=== PATIENT | male | born 1990 | race Caucasian/White ===

== ENCOUNTER 2022-07-20 20:24 | Emergency (ER) | payer MEDICAID, SELFPAY ==
[2022-07-20 20:28] VITALS: BP 134/80; PULSE 89; RESP 18; TEMP 36.6; O2SAT 99
[2022-07-20] MEDS: LORazepam (*CRX) 0.5 MG TABLET PO (20:59)
--- NOTE | 2022-07-20 21:09 | ED.GENADULT ---
HPI - General Adult General Chief complaint: Psychiatric Symptoms Stated complaint: SI History of Present Illness HPI narrative: This is home was 31-year-old presented to the ED from police custody after being arrested for shoplifting. Patient recently moved to [place] and has had a tumultuous course. He was discharged from a mental health facility and was living in long-term home. He was kicked a long-term home on 07/15 for getting high and marijuana. Since then he has been homeless. He was trying to steal a tent from [employer] and got caught. After the police arrested him he told them that he was thinking of hurting himself and was brought to the hospital. The patient denies suicidal ideation, homicidal ideation auditory or visual hallucinations. He denies use of drugs or alcohol. He does not have access to a firearm. He does have family in the area but they were unwilling to let him live with them. Related Data Allergies Allergy/AdvReac Type Severity Reaction Status Date / Time No Known Allergies Allergy Unverified 07/29/18 06:52 [facility] Past Medical History Medical History ADHD Anxiety Bipolar affect, depressed Exam Narrative: APPEARANCE: No apparent distress. Head: atraumatic. EYES: EOMI, NOSE: Atraumatic NECK: Trachea midline RESPIRATORY: No increased rate of breathing CARDIOVASCULAR: RRR, Clear to auscultation ABDOMINAL: Non-distended MUSCULOSKELETAl: No obvious deformities NEURO: Alert. Moving 4/4 extremities SKIN:: Warm, dry. Normal color PSYCHIATRIC: Normal affect Course Vital Signs Vital signs: Vital Signs Temperature 98 F 07/20/22 20:28 Pulse Rate 89 07/20/22 20:28 Respiratory Rate 18 07/20/22 20:28 Blood Pressure 134/80 07/20/22 20:28 Pulse Oximetry 99 07/20/22 20:28 Oxygen Delivery Room Air 07/20/22 20:28 Temperature 98 F 07/20/22 20:28 Pulse Rate 89 07/20/22 20:28 Respiratory Rate 18 07/20/22 20:28 Blood Pressure 134/80 07/20/22 20:28 Pulse Oximetry 99 07/20/22 20:28 Oxygen Delivery Room Air 07/20/22 20:28 Medical Decision Making MDM Narrative Medical decision making narrative: -Presentation: 31-year-old male presenting to ED after claiming he was suicidal while in police custody. He is now denying suicidal ideation. No complaints @this time. screening psych lab work has been ordered including a lithium level. 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 This can be followed by his primary care physician. Urine drug screen was positive for amphetamines and cannabinoids. Brodnax was subtherapeutic at 0.3. -Dx tests considered but not ordered: -Procedures:None -Interventions: 0.5 Ativan -Shared decision making / Disposition: patient was evaluated by crisis Center and he will be discharged with a safety contract. Patient has burned his bridges with his family and has no where to go. Patient will be given a bus pass and will attempt to reconcile with his folks. -RX Vital Signs Vital Signs: Vital Signs Temperature 98 F 07/20/22 20:28 Pulse Rate 89 07/20/22 20:28 Respiratory Rate 18 07/20/22 20:28 Blood Pressure 134/80 07/20/22 20:28 Pulse Oximetry 99 07/20/22 20:28 Oxygen Delivery Room Air 07/20/22 20:28 Temperature 98 F 07/20/22 20:28 Pulse Rate 89 07/20/22 20:28 Respiratory Rate 18 07/20/22 20:28 Blood Pressure 134/80 07/20/22 20:28 Pulse Oximetry 99 07/20/22 20:28 Oxygen Delivery Room Air 07/20/22 20:28 Lab Data 07/20/22 2
[2022-07-20 21:15] LABS: Appearance Urine Clear (Clear); Bilirubin Urine Negative (Negative); Blood Urine Negative (Negative); Color Urine Yellow (Yellow); Glucose Urine UA Negative (Negative); Ketones Urine Negative (Negative); Leukocyte Esterase Ur Negative LEU/UL (Negative); Nitrate Urine Negative (Negative); Protein Urine Negative (Negative); Specific Grav Ur 1.016 (1.001-1.035); Urobilinogen Urine 0.2 mg/dL (<2.0)
[2022-07-20 21:17] LABS: Ethanol 56 mg/dL (<10)
[2022-07-20 21:18] LABS: Basophils Percent Auto 0.7 % (0.2-1.2); Eosinophils Absolute Auto 0.2 K/mm3 (0-0.3); Eosinophils Percent Auto 2.7 % (0-4.4); Hemoglobin 15.9 g/dL (14.0-18.0); Immature Granulocyte Absolute 0.01 K/mm3 (0.00-0.031); Immature Granulocyte Percent A 0.2 % (0-0.5); Lymphocytes Absolute Auto 1.46 K/mm3 (0.9-3.2); Lymphocytes Percent Auto 24.6 % (18.3-44.2); Mean Corpuscular HGB Conc 32.4 g/dl (32-36); Mean Corpuscular Hemoglobin 31.3 pg (26-34); Mean Corpuscular Volume 96.5 fl (80-100); Mean Platelet Volume 8.7 fl (7.4-10.4); Monocytes Absolute Auto 0.3 K/mm3 (0.1-0.6); Monocytes Percent Auto 5.7 % (2.6-8.5); Neutrophils Absolute Auto 3.9 K/mm3 (1.3-6.7); Neutrophils Percent Auto 66.1 % (45.5-73.1); Platelet Count Result 273 k/mm3 (150-375); Red Blood Count 5.08 M/mm3 (4.6-6.20); Red Cell Distribution Width 13.2 % (11.5-14.5); White Blood Count 5.9 K/mm3 (4.5-10.0)
[2022-07-20 21:26] LABS: Amphetamine Screen Urine Positive (Negative); Barbiturate Screen Urine Negative (Negative); Benzodiazepines Screen Urine Negative (Negative); Cannabinoid Screen Urine Positive (Negative); Cocaine Screen Urine Negative (Negative); Methadone Screen Urine Negative (Negative); Opiate Screen Urine Negative (Negative); Phencyclidine Screen Urine Negative (Negative)
[2022-07-20 21:28] LABS: Alanine Aminotransferase 73 U/L (6-50); Albumin Level 4.7 g/dL (3.5-5.1); Alkaline Phosphatase 41 U/L (38-126); Anion Gap 7 mmol/L (8-16); Aspartate Amino Transferase 49 U/L (17-59); Bilirubin,Total 0.5 mg/dL (0.2-1.3); Blood Urea Nitrogen 13 mg/dL (9-20); Calcium 9.3 mg/dL (8.4-10.2); Carbon Dioxide 26 mmol/L (22-30); Chloride 107 mmol/L (98-107); Estimated CRCL calculation 115 ml/min; Estimated Glomerular Filt Rate > 60; Glucose 81 mg/dL (65-110); Potassium 4.1 mmol/L (3.4-5.0); Sodium 140 mmol/L (137-145)
[2022-07-20 21:37] LABS: Lithium 0.3 mmol/L (0.6-1.2)
[2022-07-20 22:09] LABS: Add Urine Microscopic? NO
[2022-07-20 22:51] LABS: Influenza A QL RT-PCR Negative (Negative); Influenza B QL RT-PCR Negative (Negative); SARS-CoV-2 RNA PCR Negative (Negative)
--- NOTE | 2022-07-20 23:02 | PC.NURSE ---
Pt medically cleared per Dr. Briscoe. Crisis contacted. States they will be here around 0030 (07/21/2022)
--- NOTE | 2022-07-21 00:15 | PC.NURSE ---
Crisis here to evaluate pt .
[2022-07-21 02:01] VITALS: BP 131/79; PULSE 84; RESP 18; TEMP 36.6; O2SAT 99
== END 2022-07-21 02:02 | disposition home or self-care (01) ==
PROVIDERS: Emergency Provider Emergency Medicine; PCP Internal Medicine
DX: F41.9 Anxiety disorder, unspecified (principal); Z20.822 Contact with and (suspected) exposure to COVID-19; Z59.00 Homelessness unspecified
CPT/HCPCS: 36415; 80053; 80178; 80307; 81003; 84443; 85025; 87636; 99283; A9270